=== PATIENT | female | born 1980 | race Asian ===

== ENCOUNTER 2017-09-05 00:30 | Inpatient (IN) | payer SELFPAY ==
[~2017-09-05] VITALS: Ht 160 cm; Wt 79.8 kg
[2017-09-05 01:02] VITALS: BP 121/77
[2017-09-05] MEDS ORDERED: IBUPROFEN 800 MG TAB PO PRN ×2 (01:25→09:30)
[2017-09-05] MEDS ORDERED: LACTATED RINGERS 1,000 ML IV SCH (01:25)
[2017-09-05 02:20] LABS: BASOPHILS # (AUTO) 0.1 K/uL (0.00-0.22); BASOPHILS % (AUTO) 1.4 % (0.0-2.0); EOSINOPHILS # (AUTO) 0.1 K/uL (0-0.4); EOSINOPHILS % (AUTO) 1.1 % (0.0-4.0); HEMATOCRIT 38.4 % (36-48); HEMOGLOBIN 12.6 g/dL (12.0-16.0); LYMPHOCYTES # (AUTO) 2.1 K/uL (2.5-16.5); LYMPHOCYTES % (AUTO) 32.7 % (20.5-51.1); MEAN CORPUSCULAR HEMOGLOBIN 30 pg (27-31); MEAN CORPUSCULAR HGB CONC 33 g/dL (33-37); MEAN CORPUSCULAR VOLUME 90.7 fL (80-94); MONOCYTES # (AUTO) 0.6 K/uL (0.8-1.0); MONOCYTES % (AUTO) 9.4 % (1.7-9.3); NEUTROPHILS # (AUTO) 3.7 K/uL (1.8-7.7); NEUTROPHILS % (AUTO) 55.4 % (42.2-75.2); PLATELET COUNT (AUTO) 147 K/uL (140-450); RED BLOOD CELL COUNT(AUTO) 4.24 MIL/uL (4.20-5.40); RED CELL DISTRIBUTION WIDTH 12.9 % (11.6-13.7); WHITE BLOOD COUNT (AUTO) 6.6 K/uL (4.8-10.8)
[2017-09-05 04:38] LABS: ANION GAP 13.6 (8-16); CARBON DIOXIDE 21.9 mmol/L (21-32); CREATININE 0.8 mg/dL (0.6-1.3); POTASSIUM 4.5 mmol/L (3.5-5.1); TOTAL BILIRUBIN 0.7 mg/dL (0.0-1.0)
[2017-09-05 04:39] LABS: ALBUMIN 2.2 g/dL (3.4-5.0)
[2017-09-05 05:06] LABS: APPEARANCE,URINE CLEAR (CLEAR); COLOR,URINE YELLOW (YELLOW)
[2017-09-05 05:07] LABS: BILIRUBIN,URINE 1+ (NEGATIVE); BLOOD, URINE NEGATIVE (NEGATIVE); NITRITE, URINE NEGATIVE (NEGATIVE); UGLUCOSE NEGATIVE (NEGATIVE)
[2017-09-05 05:08] LABS: LEUKOCYTE ESTERASE ,URINE NEGATIVE (NEGATIVE)
[2017-09-05 05:12] LABS: RBC,URINE 0-5 (RARE) /HPF (0-5)
[2017-09-05] MEDS ORDERED: ceFAZolin 1,000 MG VIAL ONE ×2 (05:50→05:52)
[2017-09-05] MEDS ORDERED: OXYTOCIN 10 UNITS/ML VIAL ONE ×2 (06:01→06:40)
[2017-09-05] MEDS ORDERED: TRIAMCINOLONE 40 MG/ML 5ML VIAL ONE (06:02)
[2017-09-05] MEDS ORDERED: MIDAZOLAM 2 MG/2 ML VIAL ONE (06:42)
[2017-09-05] MEDS ORDERED: MORPHINE PRES FREE 10 MG/10 ML AMP IV ONE (06:43)
[2017-09-05] MEDS ORDERED: BUPIVACAINE-MPF 0.5% 30 ML VIAL INJ ONE (06:46)
[2017-09-05] MEDS ORDERED: OXYTOCIN 20 UNITS in LACTATED RINGERS 1,000 ML IV SCH (07:24)
[2017-09-05] MEDS ORDERED: NALBUPHINE 10 MG/ML AMP IVP PRN (07:25)
[2017-09-05] MEDS ORDERED: NALOXONE 0.4 MG/ML VIAL IVP PRN ×3 (07:25)
[2017-09-05] MEDS ORDERED: ONDANSETRON 4 MG/2 ML VIAL IVP PRN ×2 (07:25)
[2017-09-05] MEDS ORDERED: diphenhydrAMINE 50 MG/ML VIAL IVP PRN ×2 (07:25)
[2017-09-05] MEDS ORDERED: MEPERIDINE 50 MG/ML SYR IVP PRN (07:25)
[2017-09-05] MEDS ORDERED: HYDROmorphone 1 MG/ML AMP IVP PRN (07:25)
[2017-09-05] MEDS ORDERED: ONDANSETRON 4 MG/2 ML VIAL ONE (07:33)
[2017-09-05] MEDS ORDERED: OXYTOCIN 20 UNITS/LR PREMIX 1,000 ML IV ONE (07:34)
[2017-09-05] MEDS ORDERED: MEASLES, MUMPS, AND RUBELLA 1 VIAL SQVAC PRN (09:30)
[2017-09-05] MEDS ORDERED: METHYLERGONOVINE 0.2 MG/ML AMP IM PRN (09:30)
[2017-09-05] MEDS: OXYTOCIN 20 UNITS in LACTATED RINGERS 1,000 ML IV SCH ×2 (11:32→19:53)
[2017-09-05] MEDS ORDERED: KETOROLAC 30 MG/ML VIAL IM/IVP SCH (12:00)
[2017-09-05] MEDS ORDERED: DOCUSATE SOD/SENNA 50/8.6 MG 1 TAB PO SCH (21:00)
[2017-09-06] MEDS ORDERED: oxyCODONE/APAP 5/325 MG 1 TAB TAB PO PRN (01:00)
[2017-09-06] MEDS ORDERED: IBUPROFEN 800 MG TAB PO PRN ×2 (01:00)
[2017-09-06] MEDS ORDERED: HYDROcodone/APAP 5/325 MG 1 TAB TAB PO PRN (01:00)
[2017-09-06] MEDS ORDERED: OXYTOCIN 20 UNITS/LR PREMIX 1,000 ML IV ONE (04:33)
[2017-09-06] MEDS: OXYTOCIN 20 UNITS in LACTATED RINGERS 1,000 ML IV SCH (04:34)
[2017-09-06 06:26] LABS: BASOPHILS % (AUTO) 0.3 % (0.0-2.0); HEMATOCRIT 40.8 % (36-48); HEMOGLOBIN 13.6 g/dL (12.0-16.0); LYMPHOCYTES # (AUTO) 1.7 K/uL (2.5-16.5); LYMPHOCYTES % (AUTO) 15.5 % (20.5-51.1); MEAN CORPUSCULAR HEMOGLOBIN 30 pg (27-31); MEAN CORPUSCULAR HGB CONC 33 g/dL (33-37); MEAN CORPUSCULAR VOLUME 91.3 fL (80-94); MONOCYTES # (AUTO) 0.6 K/uL (0.8-1.0); NEUTROPHILS # (AUTO) 8.3 K/uL (1.8-7.7); NEUTROPHILS % (AUTO) 78.2 % (42.2-75.2); PLATELET COUNT (AUTO) 136 K/uL (140-450); RED BLOOD CELL COUNT(AUTO) 4.46 MIL/uL (4.20-5.40); RED CELL DISTRIBUTION WIDTH 13.8 % (11.6-13.7); WHITE BLOOD COUNT (AUTO) 10.7 K/uL (4.8-10.8)
[2017-09-06] MEDS ORDERED: SIMETHICONE 80 MG TAB.CHEW PO PRN (12:05)
[2017-09-08] MEDS ORDERED: IBUP-2217 PO (10:53)
== END 2017-09-08 15:40 | disposition home or self-care (01) | DRG 765 ==
LOC: MFCC 00:30
PROVIDERS: ADMIT Obstetrics & Gynecology; ATTEND Obstetrics & Gynecology
PROC: 10D00Z1 Extraction of Products of Conception, Low, Open Approach (ICD-10-PCS; principal; 2017-09-05 06:00)
DX: O32.1XX1 Maternal care for breech presentation, fetus 1 (principal); O30.003 Twin pregnancy, unspecified number of placenta and unspecified number of amniotic sacs, third trimester; Z37.2 Twins, both liveborn; Z3A.38 38 weeks gestation of pregnancy
CPT/HCPCS: 36415; 80053; 81001; 85025; 86592; 86886; 86900; 86901; 87086; J0690; J2250; J2270; J2405; J2590; J3301; J3490; J7060; J7120